=== PATIENT | male | born 1980 | race Caucasian/White ===

== ENCOUNTER 2025-01-24 18:38 | Emergency (ER) | payer MEDICARE, MEDICAID, SELFPAY ==
[2025-01-24 18:51] VITALS: BP 149/87; PULSE 87; TEMP 37.2; O2SAT 100; BMI 32.9
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
[2025-01-24] MEDS: ORPHENADRINE 60 MG/2 ML VIAL IM (21:08)
[2025-01-24] MEDS: KETOROLAC TROMETHAMINE 60 MG/2 ML VIAL IM (21:08)
== END 2025-01-24 21:24 | disposition home or self-care (01) ==
LOC: ER 21:13
PROVIDERS: Emergency Provider Emergency Medicine; PCP Family Medicine
DX: S29.012A Strain of muscle and tendon of back wall of thorax, initial encounter (principal); M54.6 Pain in thoracic spine; X50.1XXA Overexertion from prolonged static or awkward postures, initial encounter
CPT/HCPCS: 96372; 99284; J1885; J2360